=== PATIENT | male | born 1980 | race Caucasian/White ===

== ENCOUNTER 2023-06-28 17:12 | Emergency (ER) | payer SELFPAY ==
[2023-06-28 17:26] VITALS: BP 164/105; PULSE 116; RESP 18; TEMP 36.7; O2SAT 100; BMI 19.2
[2023-06-28 17:53] VITALS: BP 153/92; PULSE 110; RESP 16; TEMP 36.9; O2SAT 98
--- NOTE | 2023-06-28 18:02 | XRR_ITS ---
PROCEDURE INFORMATION: Exam: XR Right Wrist Exam date and time: 06/28/2023 6:16 PM Age: 43 years old Clinical indication: Injury or trauma; Other: Dog bite; Wrist; Right TECHNIQUE: Imaging protocol: Radiologic exam of the right wrist. Views: 3 or more views. COMPARISON: No relevant prior studies available. FINDINGS: Bones/joints: No acute fracture. No subluxation. Distal ulnar prosthesis appears intact. Soft tissues: Skin defect and lucency along the lateral aspect of the wrist, with mild soft tissue swelling. XR/XR wrist RT min 3V* [id number] IMPRESSION: 1. Skin defect and lucency along the lateral aspect of the right wrist, with mild soft tissue swelling. 2. No acute fracture. No subluxation.
[2023-06-28] MEDS: amoxicillin-clav 875-125 mg Tablet 1 TAB PO (18:04)
[2023-06-28] MEDS: ketorolac 60 mg/2 mL INJ IM (18:04)
--- NOTE | 2023-06-28 18:05 | W.ED.WOUNDLC ---
Documented by User: CARMELO Chávez 06/28/23 18:30 HPI - Wound/Laceration General: Chief Complaint: Wound/Laceration Stated Complaint: dog bite to right wrist Time Seen by Provider: 06/28/23 17:44 Source: patient Mode of arrival: ambulatory Limitations: no limitations History of Present Illness: Patient is a 43-year-old male presenting to the emergency department complaining of dog bite to the right wrist onset just prior to arrival. Patient notes he just moved into a new house that [place] and was attempting to break up a fight between his personal dog and another dog, when he was subsequently bit on the right wrist in the process. He is unsure of who over the dog and if it had been given its rabies shot, and states he is unable to follow-up on if the dog is quarantined or not. He reports pain to the right wrist, where he has a small laceration noted with controlled bleeding. He is up-to-date on his tetanus. No distal neurovascular deficits noted, and no other injuries reported. Onset (ago): minute(s) Extremity Location: Right: wrist Place: home Patient tetanus UTD: Yes Context: accidental Associated symptoms: Reports no associated symptoms; Denies chills, fever(s), nausea or vomiting Review of Systems General: Reports: 10 or more systems reviewed and unremarkable except in HPI and below Const: Denies: fever(s), chills or fatigue Eyes: Denies: change in vision ENMT: Denies: throat pain, ear or mastoid pain or nasal discharge Card: Denies: chest pain, palpitations, swelling of feet/ankles or lightheadedness Resp: Denies: dyspnea, productive cough or wheezing GI: Denies: abdominal pain, nausea, vomiting, diarrhea or constipation : Denies: flank pain, difficulty urinating, dysuria or urinary frequency Musc: Denies: neck pain or back pain Skin/Breast: Reports: skin pain, skin tenderness and other (Dog bite); Denies: rash Neuro: Denies: headache(s), numbness in extremities or weakness in extremities Physical Exam Const: COMMON NORMALS: no acute distress, patient oriented x3 and no limitations GENERAL APPEARANCE: cooperative, comfortable and well developed ORIENTATION/CONSCIOUSNESS: Yes awake, Yes oriented to person, Yes oriented to place and Yes oriented to time HENMT: COMMON NORMALS: normocephalic, atraumatic and hearing grossly normal bilaterally HEAD & SCALP: normocephalic and atraumatic Eye: COMMON NORMALS: Equal, round and reactive pupils present, EOMs intact bilaterally and conjunctivae normal CONJUNCTIVA: Yes conjunctivae normal PUPIL: Yes Equal, round and reactive pupils present Neck/C-Spine: COMMON NORMALS: full ROM, supple and no JVD Resp: COMMON NORMALS: normal respiratory effort, No retractions, No use of accessory muscles and clear to auscultation bilaterally AUSCULTATION: clear to auscultation bilaterally Cardio: COMMON NORMALS: no JVD, regular rate, regular rhythm, No clicks present (Cardio), No murmurs present (Cardio) and No rub (Cardio) RATE: regular rate RHYTHM: regular rhythm Extremity: COMMON NORMALS: full ROM and capillary refill normal NARRATIVE EXTREMITY EXAM: See skin exam. No deformities noted or bruising. Full range of motion with no distal neurovascular deficits. Neuro: COMMON NORMALS: patient oriented x3, moves all extremities, no focal motor deficits and no sensory deficits noted SENSORIUM/ORIENTATION: Yes oriented to person, Yes oriented to place and Yes oriented to time Psych: COMMON NORMALS: mental status grossly normal and Normal thought process present THOUGHT PROCESS: Normal thought process present Skin: NARRATIVE SKIN EXAM: There is a small, linear laceration noted to the lateral aspect of the distal right wrist. Bleeding is controlled at this time. No foreign bodies noted. Scattered abrasions. Course Vital Signs: Vital signs: Vital Signs Temperature 98.4 F 06/28/23 17:53 Pulse Rate 110 H 06/28/23 17:53 Respiratory Rate 16 06/28/23 17:53 Blood Pressure 153/92 06/28/23 17:53 Pulse Oximetry 98 06/28/23 17:53 Oxygen Delivery Me thod Room Air 06/28/23 17:53 MDM - Wound/Laceration Medical Decision Making This patient was seen and evaluated in the emergency department today due to a dog bite prior to arrival. Patient unknown whose dog it was and states it was unable to be quarantined at this time. He arrives with vitals unremarkable. Exam revealed a laceration noted with controlled bleeding to the lateral aspect of the distal right wrist. He states he is up-to-date on his tetanus. He will be started on the rabies vaccination series, however, due to dog unable to be quarantined. Due to the nature of the lesion, patient's wound will heal via secondary intent and flushed extremely thoroughly prior to wound dressing. He will also be started on Augmentin for prophylactic reasons. Patient given a shot of Toradol for his pain in the ED, and will be sent home with a prescription for this. X-ray of the wrist negative for any acute fractures or other abnormalities. I do not suspect the patient has any underlying bony pathology, as the bite is very superficial. However, reasons to return are discussed including worsening signs of infection. Patient agrees with this plan and will be discharged home. Lab Data Radiology Impressions Wrist X-Ray 06/28/23 18:02 IMPRESSION: 1. Skin defect and lucency along the lateral aspect of the right wrist, with mild soft tissue swelling. 2. No acute fracture. No subluxation. All radiology interpretation(s) finalized by discharge Discharge Plan Discharge Patient Disposition: Home Clinical Impression: Dog bite of right wrist Qualifiers: Encounter type: initial encounter Qualified Code(s): S61.551A - Open bite of right wrist, initial encounter Condition: Stable Prescriptions: New ketorolac 10 mg tablet 10 mg PO Q8H PRN (Reason: pain) Qty: 60 0RF amoxicillin-pot clavulanate 875-125 mg tablet 1 tab PO BID 10 Days Qty: 20 0RF Discharge Orders: Discharge ED (Routine); Ordered 06/28/23 Ordered By: Vivek Wong Discharge Diet: Usual diet Discharge Activity: Increase activity as tolerated Patient Instructions: Animal Bite (ED) Activity Restrictions/Additional Instructions: Augmentin as prescribed. Toradol for pain. You may apply ice to the area for added relief. Please keep wound clean and dry. Monitor for any signs of infection such as redness or significant swelling or increase in pain. Return for any new or concerning symptoms you may have. Follow-up with primary care provider as needed. Follow-up for second rabies vaccination in 3 days. Coding Level of Care Code ED Mail Forwarding System Markup Clerk for Daniel Fwshima Documented by User: Brandon Ferguson DO 07/04/23 14:17 HPI - Wound/Laceration General: Chief Complaint: Wound/Laceration Stated Complaint: dog bite to right wrist Time Seen by Provider: 06/28/23 17:44 Course Vital Signs: Vital signs: Vital Signs Temperature 98.4 F 06/28/23 17:53 Pulse Rate 110 H 06/28/23 17:53 Respiratory Rate 16 06/28/23 17:53 Blood Pressure 153/92 06/28/23 17:53 Pulse Oximetry 98 06/28/23 17:53 Oxygen Delivery Me thod Room Air 06/28/23 17:53 MDM - Wound/Laceration Medical Decision Making This patient was seen and evaluated in the emergency department today due to a dog bite prior to arrival. Patient unknown whose dog it was and states it was unable to be quarantined at this time. He arrives with vitals unremarkable. Exam revealed a laceration noted with controlled bleeding to the lateral aspect of the distal right wrist. He states he is up-to-date on his tetanus. He will be started on the rabies vaccination series, however, due to dog unable to be quarantined. Due to the nature of the lesion, patient's wound will heal via secondary intent and flushed extremely thoroughly prior to wound dressing. He will also be started on Augmentin for prophylactic reasons. Patient given a shot of Toradol for his pain in the ED, and will be sent home with a prescription for this. X-ray of the wrist negative for any acute fractures or other abnormalities. I do not suspect the patient has any underlying bony pathology, as the bite is very superficial. However, reasons to return are discussed including worsening signs of infection. Patient agrees with this plan and will be discharged home. Chart reviewed Lab Data Radiology Impressions Wrist X-Ray 06/28/23 18:02 IMPRESSION: 1. Skin defect and lucency along the lateral aspect of the right wrist, with mild soft tissue swelling. 2. No acute fracture. No subluxation. Discharge Plan Discharge Patient Disposition: Home Clinical Impression: Dog bite of right wrist Qualifiers: Encounter type: initial encounter Qualified Code(s): S61.551A - Open bite of right wrist, initial encounter Condition: Stable Prescriptions: New ketorolac 10 mg tablet 10 mg PO Q8H PRN (Reason: pain) Qty: 60 0RF amoxicillin-pot clavulanate 875-125 mg tablet 1 tab PO BID 10 Days Qty: 20 0RF Discharge Orders: Discharge ED (Routine); Ordered 06/28/23 Ordered By: Vivek Wong Discharge Diet: Usual diet Discharge Activity: Increase activity as tolerated Patient Instructions: Animal Bite (ED) Activity Restrictions/Additional Instructions: Augmentin as prescribed. Toradol for pain. You may apply ice to the area for added relief. Please keep wound clean and dry. Monitor for any signs of infection such as redness or significant swelling or increase in pain. Return for any new or concerning symptoms you may have. Follow-up with primary care provider as needed. Follow-up for second rabies vaccination in 3 days. Coding Level of Care Code ED Mail Forwarding System Markup Clerk for Daniel Andersen
[2023-06-28] MEDS: rabies vaccine 2.5 unit SDV IM (18:25)
[2023-06-28] MEDS: rabies IG 300 unit/mL SDV 1 mL 1170 UNIT IM (18:32)
== END 2023-06-28 19:54 | disposition home or self-care (01) ==
PROVIDERS: Emergency Provider Physician Assistant
DX: S61.551A Open bite of right wrist, initial encounter (principal); W54.0XXA Bitten by dog, initial encounter; Z20.3 Contact with and (suspected) exposure to rabies; Z29.14 Encounter for prophylactic rabies immune globulin; Z23 Encounter for immunization
CPT/HCPCS: 73110; 90375; 90471; 90675; 96372; 99284; J1885

== ENCOUNTER 2023-08-29 14:39 | Emergency (ER) | payer SELFPAY ==
[2023-08-29 14:44] VITALS: BP 142/94; PULSE 70; RESP 16; TEMP 36.7; O2SAT 100
--- NOTE | 2023-08-29 15:00 | ED_ITS ---
HPI - General Adult 2 General: Chief complaint: General Medical Stated complaint: chest hurting Time Seen by Provider: 08/29/23 14:57 Source: patient Mode of arrival: ambulatory History of Present Illness: 43-year-old male presents to the emergen cy room with complaints of left-sided rib pain worse with deep breaths worse with coughing. Symptoms began yesterday. He has had cough cold-like symptoms last couple of days cough has been nonproductive. He denies any hemoptysis. No other exacerbating or relieving symptoms. No known history of coronary artery disease. Pain is reproducible at the bedside both with palpation and deep inspiration Onset (ago): day(s) Location: chest Relieving factors: none Exacerbating factors: none Associated symptoms: Deny chest pain, dyspnea or rash Treatments prior to arrival: none Review of Systems 2 Const: Denies: fever(s) or chills Card: Denies: chest pain, dyspnea on exertion or orthopnea Resp: Denies: dyspnea GI: Denies: abdominal pain : Denies: dysuria, urinary frequency or urinary urgency Musc: Denies: neck pain or back pain Skin/Breast: Denies: rash Physical Exam 2 Const: GENERAL APPEARANCE: cooperative and comfortable O RIENTATION/CONSCIOUSNESS: Yes awake, Yes oriented to person, Yes oriented to place and Yes oriented to time HENMT: COMMON NORMALS: normocephalic, atraumatic and hearing grossly normal bilaterally HEAD & SCALP: normocephalic and atraumatic Chest: OTHER: Reproducible left lower rib pain with palpation and deep inspiration at the anterior axillary line no skin disruption no sign of vesicular rash no bruising Resp: COMMON NORMALS: normal respiratory effort, No retractions and No use of accessory muscles AUSCULTATION: rhonchi (Left base rhonchi) Cardio: COMMON NORMALS: regular rate, regular rhythm and No murmurs present (Cardio) RATE: regular rate RHYTHM: regular rhythm GI: COMMON NORMALS: Soft to palpation and No hepatosplenomegaly present A USCULTATION: Yes normoactive bowel sounds PALPATION: Yes Soft to palpation, No Tenderness to palpation present (GI), No Guarding due to palpation present (GI) and Yes No hepatosplenomegaly present Extremity: COMMON NORMALS: normal to inspection, capillary refill normal, no clubbing, cyanosis or edema, no calf tenderness and no pedal edema Neuro: SENSORIUM/ORIENTATION: Yes oriented to person, Yes oriented to place and Yes oriented to time Skin: COMMON NORMALS: no rashes or lesions noted GENERAL SKIN EXAM: no rashes or lesions noted Course 2 Vital Signs: Vital signs: Vital Signs Temperature 98.1 F 08/29/23 14:44 Pulse Rate 69 08/29/23 15:07 Respiratory Rate 17 08/29/23 15:07 Blood Pressure 132/84 08/29/23 15:07 Pulse Oximetry 96 08/29/23 15:07 Oxygen Delivery Me thod Room Air 08/29/23 15:07 MDM - General Adult Medical Decision Making EKG and troponin is negative. Pain is reproducible with palpation and deep inspiration x-rays did not show any infiltrates. X-ray radiology questioned a nondisplaced left eighth rib fracture. He did have some slight Rales at the left base as well we will put him on doxycycline and a steroid taper and anti- inflammatory. Use albuterol as needed follow-up with his primary care doctor if not improving Medical Records I reviewed the patient's medical records. Lab Data I reviewed the patient's lab results. 08/29/23 15:16 08/29/23 15:16 Radiology Impressions Ribs X-Ray 08/29/23 15:15 IMPRESSION: Findings suspicious for acute nondisplaced left 8th rib fracture. Laboratory Results WBC 10.53 10^3/uL (3.29-11.43) 08/29/23 15:16 RBC 5.08 10^6/uL (3.85-5.65) 08/29/23 15:16 Hgb 15.30 g/dL (11.27-16.99) 08/29/23 15:16 Hct 47.0 % (37-53) 08/29/23 15:16 MCV 92.5 fl (82-101) 08/29/23 15:16 MCH 30.1 pg (27-33) 08/29/23 15:16 MCHC 32.6 g/dL (30-55) 08/29/23 15:16 RDW 13.8 % (12.1-15.1) 08/29/23 15:16 Plt Count 282 10^3/cmm (157-399) 08/29/23 15:16 MPV 9.4 fL (7.4-10.4) 08/29/23 15:16 Neut % (Auto) 77.7 % 08/29/23 15:16 Lymph % (Auto) 15.6 % 08/29/23 15:16 [place] % (Auto) 5.4 % 08/29/23 15:16 Eos % (Auto) 0.7 % 08/29/23 15:16 Baso % (Auto) 0.3 % 08/29/23 15:16 Neut # (Auto) 8.19 10^3/uL (1.8-7.7) H 08/29/23 15:16 Lymph # (Auto) 1.6 10^3/uL (0.8-4.8) 08/29/23 15:16 [place] # (Auto) 0.6 10^3/uL (0.2-0.9) 08/29/23 15:16 Eos # (Auto) 0.1 10^3/uL (0.0-0.8) 08/29/23 15:16 Baso # (Auto) 0.0 10^3/uL (0.0-0.1) 08/29/23 15:16 Nucleated RBC % (auto) 0 % 08/29/23 15:16 Nucleated RBCs # 0.0 /100WBC 08/29/23 15:16 Sodium 138 mmol/L (136-145) 08/29/23 15:16 Potassium 4.7 mmol/L (3.5-5.1) 08/29/23 15:16 Chloride 102 mmol/L (98-107) 08/29/23 15:16 Carbon Dioxide 28 mmol/L (22-29) 08/29/23 15:16 Anion Gap 12.7 (5-19) 08/29/23 15:16 BUN 9 mg/dL (6-20) 08/29/23 15:16 Creatinine 0.9 mg/dL (0.7-1.2) 08/29/23 15:16 GFR Calculation 93.0 mL/min (90-130) 08/29/23 15:16 Glucose 95 mg/dL (65-115) 08/29/23 15:16 Calculated Osmolality 284 mOsm/kg (285-295) L 08/29/23 15:16 Calcium 9.7 mg/dL (8.5-10.5) 08/29/23 15:16 Total Bilirubin 0.5 mg/dL (0.15-1.2) 08/29/23 15:16 AST 17 U/L (0-40) 08/29/23 15:16 ALT 18 U/L (0-41) 08/29/23 15:16 Alkaline Phosphatase 34 U/L (40-130) L 08/29/23 15:16 Troponin T Baseline < 6 ng/L (0-15) 08/29/23 15:16 Total Protein 6.8 g/dL (6.6-8.7) 08/29/23 15:16 Albumin 4.2 g/dL (3.5-5.2) 08/29/23 15:16 Globulin 2.6 g/dL (1.3-4.6) 08/29/23 15:16 All radiology interpretation(s) finalized by discharge Discharge Plan Discharge Patient Disposition: Home Clinical Impression: Rib pain on left side Condition: Stable Prescriptions: New doxycycline hyclate 100 mg capsule 100 mg PO BID 10 Days Qty: 20 0RF prednisone 20 mg tablet 20 mg PO TID Qty: 15 0RF Rx Instructions: 1 p.o. 3 times daily x3 days, 1 p.o. twice daily x2 days, 1 p.o. daily x2 days albuterol sulfate 90 mcg/actuation HFA aerosol inhaler 2 inh INHALATION Q4H PRN (Reason: shortness of breath or wheezing) Qty: 18 0RF hydrocodone-acetaminophen 5-325 mg tablet 1 tab PO Q6H PRN (Reason: pain) Qty: 10 0RF No Action ketorolac 10 mg tablet 10 mg PO Q8H PRN (Reason: pain) Qty: 60 0RF Discharge Orders: Discharge ED (Routine); Ordered 08/29/23 Ordered By: Brandon Ferguson Patient Instructions: Opioid Safety, Pain Management Activity Restrictions/Additional Instructions: Thank you for choosing [facility] for your healthcare needs today. It is very important that you follow up as instructed or that you return to the Emergency Department should you have concerns or if your condition changes or worsens in any way. You are seen today for left-sided rib pain. Radiologist thought he might of seen a nondisplaced fracture of the eighth rib. On exam he did have some coarse breath sounds at the base of the left lung. Recommend that he start on doxycycline use albuterol as needed gave prednisone and hydrocodone to use for pain. If not improving follow-up with your primary care doctor Stand Alone Forms: Work/School Release Coding Level of Care Code ED Middle School Math Teacher for Daniel Andersen
[2023-08-29 15:07] VITALS: BP 132/84; PULSE 69; RESP 17; O2SAT 96
--- NOTE | 2023-08-29 15:15 | XRR_ITS ---
PROCEDURE INFORMATION: Exam: XR Left Ribs with PA Chest Exam date and time: 08/29/2023 3:41 PM Age: 43 years old Clinical indication: Chest wall pain; Right; Additional info: Rib pain TECHNIQUE: Imaging protocol: Radiologic exam of the left ribs with PA chest. Views: 3 views COMPARISON: No relevant prior studies available. FINDINGS: Lungs: Unremarkable. No consolidation. Pleural spaces: Unremarkable. No pleural effusion. No pneumothorax. Heart/Mediastinum: Unremarkable. No cardiomegaly. Bones/joints: Subtle contour irregularity involving lateral aspect left 8th rib seen on one view suspicious for nondisplaced fracture. Remaining remainder left ribcage appears intact. XR/XR ribs LT mn 3V w CXR1V [id number] IMPRESSION: Findings suspicious for acute nondisplaced left 8th rib fracture.
--- NOTE | 2023-08-29 15:19 | ECG_ITS ---
[facility] Test Date: 2023-08-29 Pat Name: Dudley Jordan Department: Room: Gender: Male Technical Data Analyst: : 1980 Requested By: Brandon Martin Order Number: [id number] Nicko MD: Nicolas Cruz M.D. Measurements Intervals [place] Rate: 65 P: 59 LA: 142 QRS: 73 QRSD: 77 T: 70 QT: 340 QTc: 355 Interpretive Statements SINUS RHYTHM No previous ECG available for comparison Electronically Signed On 08-29-2023 21:06:08 CDT by Nicolas Cruz M.D. [id number]
[2023-08-29 15:27] LABS: Basophils % 0.3 %; Eosinophils # 0.1 10^3/uL (0.0-0.8); Eosinophils % 0.7 %; Lymphocytes # 1.6 10^3/uL (0.8-4.8); Lymphocytes % 15.6 %; Mean Corpuscular HGB Conc 32.6 g/dL (30-55); Mean Corpuscular Hemoglobin 30.1 pg (27-33); Mean Corpuscular Volume 92.5 fl (82-101); Mean Platelet Volume 9.4 fL (7.4-10.4); Monocytes # 0.6 10^3/uL (0.2-0.9); Monocytes % 5.4 %; Neutrophils # 8.19 10^3/uL (1.8-7.7); Neutrophils % 77.7 %; Nucleated Red Blood Cells % 0 %; Platelet Count 282 10^3/cmm (157-399); Red Blood Count 5.08 10^6/uL (3.85-5.65); Red Cell Distribution Width 13.8 % (12.1-15.1); White Blood Count 10.53 10^3/uL (3.29-11.43)
[2023-08-29 15:41] LABS: Alanine Aminotransferase 18 U/L (0-41); Albumin Level 4.2 g/dL (3.5-5.2); Alkaline Phosphatase 34 U/L (40-130); Anion Gap 12.7 (5-19); Aspartate Amino Transferase 17 U/L (0-40); Blood Urea Nitrogen 9 mg/dL (6-20); Calcium 9.7 mg/dL (8.5-10.5); Carbon Dioxide 28 mmol/L (22-29); Chloride 102 mmol/L (98-107); Creatinine Clr Calc Pharmacy 103.6157; Globulin 2.6 g/dL (1.3-4.6); Glucose 95 mg/dL (65-115); Osmolality Calculated 284 mOsm/kg (285-295); Potassium 4.7 mmol/L (3.5-5.1); Sodium 138 mmol/L (136-145); Total Bilirubin 0.5 mg/dL (0.15-1.2); Total Protein 6.8 g/dL (6.6-8.7); Troponin(5th) Baseline < 6 ng/L (0-15)
[2023-08-29 16:40] VITALS: BP 129/86; PULSE 85; O2SAT 98
== END 2023-08-29 16:41 | disposition home or self-care (01) ==
PROVIDERS: Emergency Provider Family Medicine
DX: R07.81 Pleurodynia (principal)
CPT/HCPCS: 36415; 71101; 80053; 84484; 85025; 93005; 99285

== ENCOUNTER 2024-12-01 22:43 | Emergency (ER) | payer SELFPAY ==
--- OUTSIDE RECORDS SUMMARY | 2011-02-25 12:48 | XMS_ITS | Continuity of Care Document ---
Author Organization [facility] Address [address] [place] [address] Phone Care Team Providers Care Surgery Attendant Name Role Phone Chauncey Goyal Jr, MD Unavailable Unavailable Allergies, Adverse Reactions, Alerts Substance Reaction Status Criticality No Known Allergies Active No Inform ation Procedures Procedure Date OFFICE/OUTPATIENT VISIT, NEW OFFICE/OUTPATIENT VISIT, NEW Advance Directives Directive Yes / No Effective Date File Name Resuscitation Not Answered N/A N/A Life Support Not Answered N/A N/A Intubation Not Answered N/A N/A Antibiotics Not Answered N/A N/A IV Fluid Support Not Answered N/A N/A Tube Feed Not Answered N/A N/A Other Directive N/A N/A WARNING:The information contained in this section is historical and is provided for information only and does not constitute a legal document or any assurance that the information is still accurate. Please verify the information with the leonard of the legal document before using it for clinical purposes. Encounters Encounter Description Practice Location Reason(s) For Visit Diagnoses Date Provider Providers Copied on Encounter OFFICE/OUTPA TIENT VISIT, NEW [facility], [address], [place], [place], [id number], [phone] [place] [facility] Vasectomy (chief complaint) SterilizationSteril ization 1 Jyotsna Grossman. [facility], [address], [place], [place], [id number] . tel: [phone] Family History Family Member Type Diagnosis Age At Onset Problem (finding) No family history of Hy pertension Problem (finding) No family history of Di abetes mellitus Problem (finding) No family history of Ca ncer Problem (finding) No family history of Re nal failure Payers Payer name Insurance type Covered libertarian ID Authoriza tion(s) No Information Social History Type Description Quantity Date Captured Comments Alcohol Use Details No Caffeine Use Details Unknown Tobacco Use Status No Information Smoking Status Former smoker Sex Male Chief Complaint And Reason For Visit From encounter dated '02/25/2011 17:48'. Vasectomy (chief complaint) Reason For Referral Reason For Referral No Information History Of Present Illness Encounter Date Complaint History Of Prese nt Illness No Information Functional Status Date Functional Assessmen t No Information Instructions Date Instruction Additional Infor mation No Information Assessments Type Assessment Date No Information Patient Care Teams Name Effective Dates (start - stop) Status Members No Information
--- NOTE | 2024-12-01 22:45 | W.ED.ABDPA2 ---
HPI - Abdominal Pain General: Chief Complaint: Abdominal Pain Stated Complaint: flank pain n/v/d Time Seen by Provider: 12/01/24 22:44 History of Present Illness: 44-year-old male presents emergency room complaining of pain in his right lower quadrant radiating into the groin. He told nurse that he had low back pain however when I seen him he focused more on the right lower quadrant into the groin area and the right portion of the pubic tubercle. No fever sweats chills no hematuria he says it feels like a kidney stone that has had in the past. Associated Symptoms: Denies chills, dysuria and fever(s) Related Data Previous Rx's ?Medication ?Instructions ?Recorded ketorolac 10 mg tablet 10 mg PO Q8H PRN pain #60 tabs 06/28/23 albuterol sulfate 90 mcg/actuation 2 inh inhalation Q4H PRN shortness 08/29/23 aerosol inhaler of breath or wheezing #18 grams hydrocodone 5 mg-acetaminophen 325 1 tab PO Q6H PRN pain #10 tabs 08/29/23 mg tablet prednisone 20 mg tablet 20 mg PO TID #15 tabs 08/29/23 diclofenac sodium 75 mg 75 mg PO Q12H PRN pain #20 tabs 12/02/24 tablet,delayed release Allergies Allergy/AdvReac Type Severity Reaction Status Date / Time No Known Allergies Allergy Verified 12/01/24 22:50 Review of Systems Const: Denies: fever(s) or chills Card: Denies: chest pain Resp: Denies: dyspnea GI: Reports: abdominal pain : Reports: flank pain; Denies: dysuria, urinary frequency or urinary urgency Musc: Denies: neck pain or back pain Skin/Breast: Denies: rash Physical Exam Const: COMMON NORMALS: no acute distress GENERAL APPEARANCE: cooperative and comfortable ORIENTATION/CONSCIOUSNESS: Yes awake, Yes oriented to person, Yes oriented to place and Yes oriented to time HENMT: COMMON NORMALS: normocephalic, atraumatic and hearing grossly normal bilaterally HEAD & SCALP: normocephalic and atraumatic Resp: COMMON NORMALS: normal respiratory effort, No retractions, No use of accessory muscles and clear to auscultation bilaterally AUSCULTATION: clear to auscultation bilaterally Cardio: COMMON NORMALS: regular rate, regular rhythm and No murmurs present (Cardio) RATE: regular rate RHYTHM: regular rhythm GI: COMMON NORMALS: No hepatosplenomegaly present AUSCULTATION: Yes normoactive bowel sounds PALPATION: Yes Tenderness to palpation present (GI) (Right lower quadrant along the inguinal canal), No Guarding due to palpation present (GI) and Yes No hepatosplenomegaly present OTHER: No hernia in the usual canal. Penis is normal no swelling of testicle no deformity. No redness no erythema Extremity: COMMON NORMALS: normal to inspection, capillary refill normal, no clubbing, cyanosis or edema, no calf tenderness and no pedal edema Neuro: SENSORIUM/ORIENTATION: Yes oriented to person, Yes oriented to place and Yes oriented to time Skin: COMMON NORMALS: no rashes or lesions noted GENERAL SKIN EXAM: no rashes or lesions noted Course Vital Signs: Vital signs: Vital Signs Temperature 98 F 12/01/24 22:47 Pulse Rate 88 12/02/24 00:30 Respiratory Rate 20 H 12/01/24 22:47 Blood Pressure 181/96 12/02/24 00:30 Pulse Oximetry 97 12/02/24 00:30 Oxygen Delivery Me thod Room Air 12/02/24 00:30 MDM - Abdominal Pain Medical Decision Making Urine does not show any hematuria microscopically. There is no acute findings on physical exam. CT was negative ultrasound of scrotum and testicle did not show any acute pathology. Discharge patient home with diclofenac as needed reviewed all the lab findings with him patient admits to methamphetamine use Lab Data I reviewed the patient's lab results. 12/01/24 23:15 12/01/24 23:15 Labs/Radiology: Radiology Impressions Abdomen/Pelvis CT 12/01/24 23:56 IMPRESSION: 1. Within the limitations of motion artifact, no acute intra-abdominal process to explain the patient's symptoms. 2. Prostatomegaly. Correlate with PSA. COMMENTS: Consistent with the [employer]'s Incidental Findings Committee white paper (J Am Amber Radiol 2018): Any incidental renal lesion less than 1 cm or classified as too small to characterize, or any incidental cystic renal lesion characterized as simple-appearing, is likely benign. No follow-up imaging is recommended for these lesions per consensus recommendations based on imaging criteria. Scrotum Ultrasound 12/02/24 00:57 IMPRESSION: 1. Sonographically normal testicles without evidence of torsion. 2. Left epididymal head cyst. Laboratory Results WBC 12.19 10^3/uL (3.29-11.43) H 12/01/24 23:15 RBC 5.26 10^6/uL (3.85-5.65) 12/01/24 23:15 Hgb 15.30 g/dL (11.27-16.99) 12/01/24 23:15 Hct 45.5 % (37-53) 12/01/24 23:15 MCV 86.5 fl (82-101) 12/01/24 23:15 MCH 29.1 pg (27-33) 12/01/24 23:15 MCHC 33.6 g/dL (30-55) 12/01/24 23:15 RDW 12.4 % (12.1-15.1) 12/01/24 23:15 Plt Count 385 10^3/cmm (157-399) 12/01/24 23:15 MPV 9.8 fL (7.4-10.4) 12/01/24 23:15 Neut % (Auto) 86.8 % 12/01/24 23:15 Lymph % (Auto) 9.5 % 12/01/24 23:15 [place] % (Auto) 3.2 % 12/01/24 23:15 Eos % (Auto) 0.0 % 12/01/24 23:15 Baso % (Auto) 0.2 % 12/01/24 23:15 Neut # (Auto) 10.58 10^3/uL (1.8-7.7) H 12/01/24 23:15 Lymph # (Auto) 1.2 10^3/uL (0.8-4.8) 12/01/24 23:15 [place] # (Auto) 0.4 10^3/uL (0.2-0.9) 12/01/24 23:15 Eos # (Auto) 0.0 10^3/uL (0.0-0.8) 12/01/24 23:15 Baso # (Auto) 0.0 10^3/uL (0.0-0.1) 12/01/24 23:15 Nucleated RBC % (auto) 0 % 12/01/24 23:15 Nucleated RBCs # 0.0 /100WBC 12/01/24 23:15 Sodium 140 mmol/L (136-145) 12/01/24 23:15 Potassium 3.8 mmol/L (3.5-5.1) 12/01/24 23:15 Chloride 101 mmol/L (98-107) 12/01/24 23:15 Carbon Dioxide 24 mmol/L (22-29) 12/01/24 23:15 Anion Gap 18.8 (5-19) 12/01/24 23:15 BUN 11 mg/dL (6-20) 12/01/24 23:15 Creatinine 1.1 mg/dL (0.7-1.2) 12/01/24 23:15 GFR Calculation 73.4 mL/min (90-130) L 12/01/24 23:15 Glucose 120 mg/dL (65-115) H 12/01/24 23:15 Calculated Osmolality 291 mOsm/kg (285-295) 12/01/24 23:15 Calcium 10.9 mg/dL (8.5-10.5) H 12/01/24 23:15 Total Bilirubin 0.8 mg/dL (0.15-1.2) 12/01/24 23:15 AST 26 U/L (0-40) 12/01/24 23:15 ALT 31 U/L (0-41) 12/01/24 23:15 Alkaline Phosphatase 37 U/L (40-130) L 12/01/24 23:15 Total Protein 8.3 g/dL (6.6-8.7) 12/01/24 23:15 Albumin 4.8 g/dL (3.5-5.2) 12/01/24 23:15 Globulin 3.5 g/dL (1.3-4.6) 12/01/24 23:15 Urine Color Yellow (Yellow) 12/01/24 23:28 Urine Appearance Cloudy (CLEAR) A 12/01/24 23:28 Urine pH 6.5 (5-7) 12/01/24 23:28 Ur Specific [place] 1.029 (1.005-1.030) 12/01/24 23:28 Urine Protein 1+ (Negative) A 12/01/24 23:28 Urine Glucose (UA) Negative (Normal) 12/01/24 23:28 Urine Ketones Trace (Negative) 12/01/24 23:28 Urine Blood Negative (Negative) 12/01/24 23:28 Urine Nitrate Negative (Negative) 12/01/24 23:28 Urine Bilirubin Negative (Negative) 12/01/24 23:28 Urine Urobilinogen 1.0 mg/dL (Negative) 12/01/24 23:28 Ur Leukocyte Esterase Negative (Negative) 12/01/24 23:28 Urine RBC 0-2 /hpf (0-2) 12/01/24 23:28 Urine WBC 0-5 /hpf (0-5) 12/01/24 23:28 Ur Squamous Epith Cells 0-5 /hpf (0-5) 12/01/24 23:28 Amorphous Sediment Not Reportable 12/01/24 23:28 Urine Bacteria None seen /hpf (NONE) 12/01/24 23:28 Hyaline Casts 1.65 /lpf 12/01/24 23:28 Urine Opiates Screen Negative ng/mL (Negative) 12/01/24 23:28 Ur Barbiturates Screen Negative ng/mL (Negative) 12/01/24 23:28 Ur Phencyclidine Scrn Negative ng/mL (Negative) 12/01/24 23:28 Ur Amphetamines Screen Positive ng/mL (Negative) H 12/01/24 23:28 U Benzodiazepines Scrn Negative ng/mL (Negative) 12/01/24 23:28 Urine Cocaine Screen Negative ng/mL (Negative) 12/01/24 23:28 U Marijuana (THC) Screen Positive ng/mL (Negative) H 12/01/24 23:28 All radiology interpretation(s) finalized by discharge Discharge Plan Discharge Patient Disposition: Home Clinical Impression: Strain of abdominal wall, Methamphetamine use Condition: Stable Prescriptions: New diclofenac sodium 75 mg tablet,delayed release (DR/EC) 75 mg PO Q12H PRN (Reason: pain) Qty: 20 0RF No Action ketorolac 10 mg tablet 10 mg PO Q8H PRN (Reason: pain) Qty: 60 0RF prednisone 20 mg tablet 20 mg PO TID Qty: 15 0RF Rx Instructions: 1 p.o. 3 times daily x3 days, 1 p.o. twice daily x2 days, 1 p.o. daily x2 days albuterol sulfate 90 mcg/actuation HFA aerosol inhaler 2 inh INHALATION Q4H PRN (Reason: shortness of breath or wheezing) Qty: 18 0RF hydrocodone-acetaminophen 5-325 mg tablet 1 tab PO Q6H PRN (Reason: pain) Qty: 10 0RF Discharge Orders: Discharge ED (Routine); Ordered 12/02/24 Ordered By: Brandon Ferguson Discharge Diet: Usual diet Discharge Activity: Resume usual activity Patient Instructions: Opioid Safety, Pain Management, Patient Portal & [facility] Instructions Activity Restrictions/Additional Instructions: Thank you for choosing [facility] for your healthcare needs today. It is very important that you follow up as instructed or that you return to the Emergency Department should you have concerns or if your condition changes or worsens in any way. Emergency department visits are focused on emergent conditions, in some cases you may require further evaluation on an outpatient basis. You were seen in the emergency room with complaints of flank and groin pain your CT of the abdomen was normal no acute pathology was noted. Ultrasound of the scrotum was also negative urine did not show any signs of infection your urine did test positive for methamphetamines. Based on your exam suspect you strained a muscle in the groin region/lower abdomen. Will give you diclofenac you can use as needed. If you are taking the diclofenac you should not take any ketorolac if you still have any left from previous prescription. (Please note that included in your discharge packet is information concerning opioid safety and pain management. This information is given to all patients were discharged from the ER regardless of their discharge diagnosis or the medicines they usually take or are prescribed.) Print Language: Somali Coding Level of Care Code ED Technical Product Manager for Daniel Andersen
[2024-12-01 22:47] VITALS: BP 146/99; PULSE 92; RESP 20; TEMP 36.6; O2SAT 99; BMI 20.7
[2024-12-01 23:23] VITALS: BP 122/101; PULSE 95; O2SAT 98
[2024-12-01 23:40] VITALS: BP 176/111; PULSE 81; O2SAT 98
[2024-12-01] MEDS: ondansetron 2 mg/ML SDV 2 mL 4 MG IVP (23:40)
[2024-12-01 23:41] LABS: Hematocrit 45.5 % (37-53); Hemoglobin 15.30 g/dL (11.27-16.99); Mean Corpuscular HGB Conc 33.6 g/dL (30-55); Mean Corpuscular Hemoglobin 29.1 pg (27-33); Mean Corpuscular Volume 86.5 fl (82-101); Nucleated Red Blood Cells % 0 %; Platelet Count 385 10^3/cmm (157-399); Red Blood Count 5.26 10^6/uL (3.85-5.65); White Blood Count 12.19 10^3/uL (3.29-11.43)
[2024-12-01 23:43] LABS: Alanine Aminotransferase 31 U/L (0-41); Albumin Level 4.8 g/dL (3.5-5.2); Alkaline Phosphatase 37 U/L (40-130); Anion Gap 18.8 (5-19); Aspartate Amino Transferase 26 U/L (0-40); Blood Urea Nitrogen 11 mg/dL (6-20); Calcium 10.9 mg/dL (8.5-10.5); Carbon Dioxide 24 mmol/L (22-29); Chloride 101 mmol/L (98-107); Creatinine Clr Calc Pharmacy 83.9202; Globulin 3.5 g/dL (1.3-4.6); Glucose 120 mg/dL (65-115); Osmolality Calculated 291 mOsm/kg (285-295); Potassium 3.8 mmol/L (3.5-5.1); Sodium 140 mmol/L (136-145); Total Protein 8.3 g/dL (6.6-8.7)
[2024-12-01 23:53] LABS: Glucose Urine UA Negative (Normal); Nitrate Urine Negative (Negative); Specific Gravity, Urine 1.029 (1.005-1.030)
[2024-12-01] MEDS: iohexol 350 mg/mL 500 mL Btl (per mL) IV (23:55)
--- NOTE | 2024-12-01 23:56 | CTR_ITS ---
PROCEDURE INFORMATION: Exam: CT Abdomen And Pelvis With Contrast Exam date and time: 12/02/2024 12:13 AM Age: 44 years old Clinical indication: Abdominal pain; Prior surgery; Surgery date: 6+ months; Surgery type: Vasectomy; Additional info: Abd pain TECHNIQUE: Imaging protocol: Computed tomography of the abdomen and pelvis with contrast. Radiation optimization: All CT scans at this facility use at least one of these dose optimization techniques: automated exposure control; mA and/or kV adjustment per patient size (includes targeted exams where dose is matched to clinical indication); or iterative reconstruction. Contrast material: OMNI 350; Contrast volume: 100 ml; Contrast route: INTRAVENOUS (IV); COMPARISON: CR XR ribs LT mn 3V w [id number] [id number] 08/29/2023 3:41 PM RADIATION DOSE METRICS: Total DLP (mGy-cm): 366.83 FINDINGS: Liver: Normal. No mass. Gallbladder and biliary ducts: Normal. No calcified stones. No ductal dilation. Pancreas: Normal. No ductal dilation. Spleen: Parenchymal calcifications are seen throughout the spleen, likely reflecting prior granulomatous changes. The spleen is otherwise normal. Adrenal glands: Normal. No mass. Kidneys and ureters: Simple left renal cysts are present (Bosni[place] 1). No follow-up required. Stomach and bowel: Unremarkable. No obstruction. No mucosal thickening. Appendix: The appendix is not clearly identified. No inflammation in the right lower quadrant is present to suggest acute appendicitis. Intraperitoneal space: Unremarkable. No free air. No significant fluid collection. Vasculature: A circumaortic left renal vein is present. Lymph nodes: Unremarkable. No enlarged lymph nodes. Urinary bladder: Unremarkable as visualized. Reproductive: Postoperative changes from vasectomy are noted. The prostate is enlarged. Bones/joints: Unremarkable. No acute fracture. Soft tissues: Unremarkable. Other findings: Evaluation is somewhat limited secondary to motion artifact. CT/CT abdomen pelvis w con* [id number] IMPRESSION: 1. Within the limitations of motion artifact, no acute intra-abdominal process to explain the patient's symptoms. 2. Prostatomegaly. Correlate with PSA. COMMENTS: Consistent with the [employer]'s Incidental Findings Committee white paper (J Am Amber Radiol 2018): Any incidental renal lesion less than 1 cm or classified as too small to characterize, or any incidental cystic renal lesion characterized as simple-appearing, is likely benign. No follow-up imaging is recommended for these lesions per consensus recommendations based on imaging criteria.
[2024-12-01 23:58] LABS: Add Urine Microscopic? YES
[2024-12-02] VITALS: BP 157/109; PULSE 99; O2SAT 95
[2024-12-02 00:30] VITALS: BP 181/96; PULSE 88; O2SAT 97
--- NOTE | 2024-12-02 00:57 | USR_ITS ---
PROCEDURE INFORMATION: Exam: US Scrotum Exam date and time: 12/02/2024 1:06 AM Age: 44 years old Clinical indication: Scrotum pain; Prior surgery; Surgery date: 6+ months; Surgery type: Vasectomy 2004; RT scrotal pain, no known trauma; Additional info: R testicle pain TECHNIQUE: Imaging protocol: Real-time ultrasound of the scrotum and contents with color Doppler and image documentation. COMPARISON: CT abdomen pelvis w con* [id number] 12/02/2024 12:13 AM FINDINGS: Right testicle: The right testicle measures 4.5 x 3.1 x 1.7 cm with a volume of 12 mL. Left testicle: The left testicle measures 3.9 x 2.8 x 1.7 cm with a volume of 9 mL. Epididymides: 4 mm left epididymal head cyst, simple in appearance. The right epididymis measures 0.7 x 3.1 x 1.2 cm. The left epididymis measures 0.7 x 3.4 x 0.9 cm. Scrotum/soft tissues: Normal. No hydroceles. Other findings: Normal color Doppler flow is noted both testicles. No evidence of torsion. US/US scrotum [id number] IMPRESSION: 1. Sonographically normal testicles without evidence of torsion. 2. Left epididymal head cyst.
[2024-12-02 02:08] LABS: PCP Screen Urine Negative (Negative)
== END 2024-12-02 02:35 | disposition home or self-care (01) ==
PROVIDERS: Physician Assistant; Emergency Provider Family Medicine
DX: S39.011A Strain of muscle, fascia and tendon of abdomen, initial encounter (principal); F15.10 Other stimulant abuse, uncomplicated; X58.XXXA Exposure to other specified factors, initial encounter
CPT/HCPCS: 36415; 74177; 76870; 80053; 80306; 81001; 85025; 96374; 96375; 99285; J1885; J2405